=== PATIENT | male | born 1955 | race African-American/Black ===

== ENCOUNTER 2020-10-06 23:53 | Inpatient (IN) | payer SELFPAY ==
[2020-10-07 00:55] LABS: #Monocytes 0.7 10x3/uL (0.0-1.1); #Neutrophils 4.1 10x3/uL (1.5-8.4); %Basophils 0.3 % (0.0-2.0); %Eosinophils 0.2 % (0.0-6.0); %Lymphocytes 16.9 % (18.0-47.0); %Monocytes 11.6 % (0.0-10.0); %Neutrophils 70.3 % (40.0-75.0); Hemoglobin 11.5 g/dL (13.5-17.5); Mean Corpuscular HGB CONC 35.4 g/dL (32.0-36.0); Mean Corpuscular Hemoglobin 36.7 pg (27.0-33.0); Mean Corpuscular Volume 103.8 fl (81.2-95.1); Mean Platelet Volume 10.8 fl (7.4-10.4); Platelet Count 179 10x3/uL (150-450); RBC Distribution Width 12.5 % (11.5-14.5); Red Blood Cell (RBC) Count 3.13 10x6/uL (4.32-5.72); White Blood Cell (WBC) Count 5.9 10x3/uL (3.5-10.5)
[2020-10-07 01:08] LABS: Acetaminophen Less than 6.0 mcg/mL (10.0-30.0); Alcohol Less than 10 mg/dL (Less than 10); Salicylate Less than 8.0 mg/dL (15.0-30.0)
[2020-10-07 01:10] LABS: Albumin 3.9 g/dL (3.4-4.8); Anion Gap 20 mmol/L (10-20); BUN (Urea Nitrogen) 22 mg/dL (8.4-25.7); Calc. Creatinine Clearance 0 mL/min (70-130); Calcium 9.9 mg/dL (7.8-10.44); Carbon Dioxide 24 mmol/L (23-31); Chloride 100 mmol/L (98-107); Glucose 97 mg/dL (80-115); Potassium 3.3 mmol/L (3.5-5.1); Protein, Total 7.3 g/dL (5.8-8.1); Sodium 141 mmol/L (136-145)
[2020-10-07 01:11] LABS: ALT (SGPT) 54 U/L (8-55); AST (SGOT) 196 U/L (5-34); Alkaline Phosphatase 59 U/L (40-110); Globulin 3.4 g/dL (2.4-3.5)
[2020-10-07 01:14] LABS: Amphetamine Not Detected (NotDetected); Barbiturates Screen Not Detected (NotDetected); Benzodiazepine Screen Not Detected (NotDetected); Cocaine Metabolite Screen Not Detected (NotDetected); Methadone Not Detected (NotDetected); Methamphetamine Not Detected (NotDetected); Opiate Screen Not Detected (NotDetected); Oxycodone Screen Not Detected (NotDetected); Phencyclidine (PCP) Not Detected (NotDetected); THC/Cannabinoid Screen Not Detected (NotDetected); Tricyclic Screen Not Detected (NotDetected)
[2020-10-07 01:19] LABS: CK (CPK) 6736 U/L (30-200)
[2020-10-07 01:53] LABS: Bilirubin 3+ (Negative); Blood, Urine 150 (Negative); Clarity Cloudy (Clear); Glucose, Urine (Dipstick) Normal (Negative); Ketone, Urine 50 mg/dL (Negative); Leukocyte 100 (Negative); Nitrite Positive (Negative); Protein, Urine (Dipstick) 100 mg/dl (Neg-Trace); Specific Gravity, Urine 1.015 (1.002-1.036)
[2020-10-07 01:59] LABS: Bacteria/HPF 1+ HPF (None Seen); Squamous Epithelial 0-3 HPF (0-3); WBC/HPF 21-50 HPF (0-3)
[2020-10-07 02:00] LABS: Mucous/LPF 1+ LPF (<2+); Transitional Epithelial 0-3 HPF (None Seen)
[2020-10-07] MEDS ORDERED: cefTRIAXone\\ROCEPHIN 2 GM VIAL ONE (02:09)
[2020-10-07 02:27] LABS: CKMB 38.4 ng/mL (0-6.6)
[2020-10-07] MEDS ORDERED: Potassium Chloride 20 MEQ TAB PO SCH (04:30)
[2020-10-07] MEDS ORDERED: Thiamine HCl 200 MG/2 ML VIAL SLOW IVP SCH (04:30)
[2020-10-07] MEDS ORDERED: NS 0.9% w/ 40 MEQ KCL 1,000 ML IV ONE (04:50)
[2020-10-07] MEDS: NS 0.9% w/ 40 MEQ KCL 1,000 ML IV SCH ×2 (04:56→16:48)
[2020-10-07] MEDS: Nicotine 21 MG PATCH TD SCH (04:57)
[2020-10-07 05:11] LABS: Troponin I 0.038 ng/mL (< 0.028)
[2020-10-07] MEDS ORDERED: Magnesium 2 GM/50 ML 2 GM in Premix Bag 1 BAG IVPB SCH (08:00)
[2020-10-07] MEDS: Multivitamin W/ Minerals 1 TAB PO SCH (08:13)
[2020-10-07] MEDS: Folic Acid 1 MG TAB PO SCH (08:13)
[2020-10-07] MEDS: Enoxaparin Sodium 40 MG/0.4 ML SYRINGE SC SCH (08:13)
[2020-10-07] MEDS ORDERED: Thiamine 100 MG TAB PO SCH (09:00)
[2020-10-07 11:40] LABS: Troponin I 0.041 ng/mL (< 0.028)
[2020-10-07 14:25] LABS: SARS-CoV-2 PCR by NAA Not Detected (NotDetected)
[2020-10-08] MEDS: cefTRIAXone\\ROCEPHIN 1 GM in Sodium Chloride 0.9% 100 ML IVPB SCH (02:23)
[2020-10-08] MEDS ORDERED: Acetaminophen 325 MG TAB PO SCH (04:15)
[2020-10-08] MEDS: Nicotine 21 MG PATCH TD SCH (04:24)
[2020-10-08] MEDS: NS 0.9% w/ 40 MEQ KCL 1,000 ML IV SCH ×2 (04:24→08:56)
[2020-10-08 05:23] LABS: #Monocytes 0.6 10x3/uL (0.0-1.1); #Neutrophils 2.9 10x3/uL (1.5-8.4); %Basophils 0.4 % (0.0-2.0); %Eosinophils 0.4 % (0.0-6.0); %Lymphocytes 26.1 % (18.0-47.0); %Monocytes 12.3 % (0.0-10.0); %Neutrophils 59.4 % (40.0-75.0); Hemoglobin 10.1 g/dL (13.5-17.5); Mean Corpuscular HGB CONC 34.4 g/dL (32.0-36.0); Mean Corpuscular Hemoglobin 35.4 pg (27.0-33.0); Mean Corpuscular Volume 103.2 fl (81.2-95.1); Mean Platelet Volume 10.5 fl (7.4-10.4); Platelet Count 168 10x3/uL (150-450); RBC Distribution Width 13.1 % (11.5-14.5); Red Blood Cell (RBC) Count 2.85 10x6/uL (4.32-5.72); White Blood Cell (WBC) Count 4.9 10x3/uL (3.5-10.5)
[2020-10-08 05:26] LABS: Anion Gap 15 mmol/L (10-20); BUN (Urea Nitrogen) 14 mg/dL (8.4-25.7); Calc. Creatinine Clearance 93 mL/min (70-130); Calcium 8.8 mg/dL (7.8-10.44); Carbon Dioxide 24 mmol/L (23-31); Chloride 107 mmol/L (98-107); Glucose 110 mg/dL (80-115); Potassium 3.5 mmol/L (3.5-5.1); Sodium 142 mmol/L (136-145)
[2020-10-08] MEDS: Multivitamin W/ Minerals 1 TAB PO SCH (08:57)
[2020-10-08] MEDS: Aspirin 81 mg Enteric Coated Tablet PO SCH (08:57)
[2020-10-08] MEDS: Enoxaparin Sodium 40 MG/0.4 ML SYRINGE SC SCH (08:57)
[2020-10-08] MEDS: Folic Acid 1 MG TAB PO SCH (08:57)
[2020-10-08] MEDS: Magnesium Oxide 400 MG TAB PO SCH (08:59)
[2020-10-08 10:50] LABS: ALT (SGPT) 41 U/L (8-55); AST (SGOT) 108 U/L (5-34); Albumin 3.3 g/dL (3.4-4.8); Alkaline Phosphatase 52 U/L (40-110); Bilirubin, Direct 0.3 mg/dL (0.1-0.3); Bilirubin, Total 0.5 mg/dL (0.2-1.2); Protein, Total 6.3 g/dL (5.8-8.1)
[2020-10-08 12:28] LABS: #Monocytes 0.8 10x3/uL (0.0-1.1); #Neutrophils 3.6 10x3/uL (1.5-8.4); %Basophils 0.4 % (0.0-2.0); %Eosinophils 0.4 % (0.0-6.0); %Lymphocytes 20.9 % (18.0-47.0); %Monocytes 13.3 % (0.0-10.0); %Neutrophils 63.4 % (40.0-75.0); Hemoglobin 10.9 g/dL (13.5-17.5); Mean Corpuscular HGB CONC 34.8 g/dL (32.0-36.0); Mean Corpuscular Hemoglobin 36.5 pg (27.0-33.0); Mean Corpuscular Volume 104.7 fl (81.2-95.1); Mean Platelet Volume 10.8 fl (7.4-10.4); Platelet Count 181 10x3/uL (150-450); Red Blood Cell (RBC) Count 2.99 10x6/uL (4.32-5.72); White Blood Cell (WBC) Count 5.7 10x3/uL (3.5-10.5)
[2020-10-08] MEDS ORDERED: Metoprolol Tartrate 5 MG/5 ML VIAL IVP SCH (12:30)
[2020-10-08 12:39] LABS: Anion Gap 14 mmol/L (10-20); BUN (Urea Nitrogen) 14 mg/dL (8.4-25.7); Calc. Creatinine Clearance 108 mL/min (70-130); Calcium 8.3 mg/dL (7.8-10.44); Carbon Dioxide 20 mmol/L (23-31); Chloride 108 mmol/L (98-107); Glucose 127 mg/dL (80-115); Potassium 3.3 mmol/L (3.5-5.1); Sodium 139 mmol/L (136-145)
[2020-10-08 12:42] LABS: Troponin I 0.031 ng/mL (< 0.028)
[2020-10-09] MEDS: NS 0.9% w/ 40 MEQ KCL 1,000 ML IV SCH ×3 (00:17→05:58)
[2020-10-09] MEDS: cefTRIAXone\\ROCEPHIN 1 GM in Sodium Chloride 0.9% 100 ML IVPB SCH (02:25)
[2020-10-09] MEDS: Nicotine 21 MG PATCH TD SCH (05:15)
[2020-10-09] MEDS ORDERED: Diazepam 5 MG TAB PO PRN (07:43)
[2020-10-09] MEDS ORDERED: Diazepam 5 MG TAB PO SCH (07:45)
[2020-10-09 08:32] LABS: #Monocytes 0.7 10x3/uL (0.0-1.1); #Neutrophils 4.1 10x3/uL (1.5-8.4); %Basophils 0.5 % (0.0-2.0); %Eosinophils 0.5 % (0.0-6.0); %Lymphocytes 18.6 % (18.0-47.0); %Monocytes 10.9 % (0.0-10.0); %Neutrophils 68.2 % (40.0-75.0); Hemoglobin 10.9 g/dL (13.5-17.5); Mean Corpuscular HGB CONC 34.2 g/dL (32.0-36.0); Mean Corpuscular Hemoglobin 36.3 pg (27.0-33.0); Mean Corpuscular Volume 106.3 fl (81.2-95.1); Mean Platelet Volume 10.6 fl (7.4-10.4); Platelet Count 181 10x3/uL (150-450); RBC Distribution Width 13.1 % (11.5-14.5); White Blood Cell (WBC) Count 6.1 10x3/uL (3.5-10.5)
[2020-10-09] MEDS ORDERED: ALPRAZolam 1 MG TAB PO SCH (08:45)
[2020-10-09 08:46] LABS: Anion Gap 16 mmol/L (10-20); BUN (Urea Nitrogen) 10 mg/dL (8.4-25.7); Calc. Creatinine Clearance 110 mL/min (70-130); Calcium 8.9 mg/dL (7.8-10.44); Carbon Dioxide 19 mmol/L (23-31); Chloride 106 mmol/L (98-107); Glucose 113 mg/dL (80-115); Potassium 3.6 mmol/L (3.5-5.1); Sodium 137 mmol/L (136-145)
[2020-10-09 08:49] LABS: Troponin I 0.035 ng/mL (< 0.028)
[2020-10-09] MEDS ORDERED: Magnesium Oxide 400 MG TAB ONE (09:13)
[2020-10-09] MEDS: Aspirin 81 mg Enteric Coated Tablet PO SCH (09:25)
[2020-10-09] MEDS: Folic Acid 1 MG TAB PO SCH (09:26)
[2020-10-09] MEDS: Enoxaparin Sodium 40 MG/0.4 ML SYRINGE SC SCH (09:26)
[2020-10-09] MEDS: Multivitamin W/ Minerals 1 TAB PO SCH (09:26)
[2020-10-09] MEDS: Magnesium Oxide 400 MG TAB PO SCH (09:26)
[2020-10-09] MEDS: Lorazepam 2 MG/ML VIAL SLOW IVP SCH ×4 (09:26→23:13)
[2020-10-09] MEDS ORDERED: Magnesium 2 GM/50 ML 2 GM in Premix Bag 1 BAG IVPB SCH (10:45)
[2020-10-09] MEDS ORDERED: chlordiazePOXIDE HCl 25 MG CAP PO SCH ×2 (12:00→23:00)
[2020-10-09] MEDS: ALPRAZolam 1 MG TAB PO SCH (23:13)
[2020-10-10] MEDS: cefTRIAXone\\ROCEPHIN 1 GM in Sodium Chloride 0.9% 100 ML IVPB SCH (02:30)
[2020-10-10] MEDS: Lorazepam 2 MG/ML VIAL SLOW IVP SCH ×4 (03:14→14:48)
[2020-10-10] MEDS: Nicotine 21 MG PATCH TD SCH (03:39)
[2020-10-10] MEDS ORDERED: Diazepam 5 MG TAB PO PRN (04:00)
[2020-10-10 06:53] LABS: Hemoglobin 10.5 g/dL (13.5-17.5); Mean Corpuscular HGB CONC 35.4 g/dL (32.0-36.0); Mean Corpuscular Hemoglobin 36.6 pg (27.0-33.0); Mean Corpuscular Volume 103.5 fl (81.2-95.1); Mean Platelet Volume 10.7 fl (7.4-10.4); Platelet Count 198 10x3/uL (150-450); RBC Distribution Width 12.9 % (11.5-14.5); Red Blood Cell (RBC) Count 2.87 10x6/uL (4.32-5.72); White Blood Cell (WBC) Count 5.1 10x3/uL (3.5-10.5)
[2020-10-10 06:54] LABS: MDiff Complete? YES
[2020-10-10 07:01] LABS: Anion Gap 13 mmol/L (10-20); BUN (Urea Nitrogen) 6 mg/dL (8.4-25.7); Calc. Creatinine Clearance 124 mL/min (70-130); Carbon Dioxide 24 mmol/L (23-31); Chloride 103 mmol/L (98-107); Glucose 104 mg/dL (80-115); Magnesium 1.5 mg/dL (1.6-2.6); Potassium 3.1 mmol/L (3.5-5.1); Sodium 137 mmol/L (136-145)
[2020-10-10 07:10] LABS: Eosinophils 1 % (0-10); Lymphocytes 30 % (21-51); Monocytes 16 % (0-10); Neutrophil 52 % (42-75); Reactive Lymphocytes 1 % (0-10)
[2020-10-10] MEDS ORDERED: Potassium Chloride 20 MEQ TAB PO SCH (08:30)
[2020-10-10] MEDS: Folic Acid 1 MG TAB PO SCH (08:44)
[2020-10-10] MEDS: Magnesium Oxide 400 MG TAB PO SCH (08:44)
[2020-10-10] MEDS: Enoxaparin Sodium 40 MG/0.4 ML SYRINGE SC SCH (08:44)
[2020-10-10] MEDS: ALPRAZolam 1 MG TAB PO SCH (08:44)
[2020-10-10] MEDS: Thiamine 100 MG TAB PO SCH (08:44)
[2020-10-10] MEDS: Multivitamin W/ Minerals 1 TAB PO SCH (08:44)
[2020-10-10] MEDS: Aspirin 81 mg Enteric Coated Tablet PO SCH (08:44)
[2020-10-10] MEDS ORDERED: Magnesium Sulfate 3 GM in Sodium Chloride 0.9% 100 ML IVPB SCH (09:00)
[2020-10-10] MEDS ORDERED: ALPRAZolam 1 MG TAB PO PRN (21:00)
[2020-10-10] MEDS ORDERED: Lorazepam 2 MG/ML VIAL SLOW IVP SCH (21:00)
[2020-10-11] MEDS: cefTRIAXone\\ROCEPHIN 1 GM in Sodium Chloride 0.9% 100 ML IVPB SCH (03:17)
[2020-10-11] MEDS: Nicotine 21 MG PATCH TD SCH (04:08)
[2020-10-11 06:43] LABS: Hemoglobin 10.6 g/dL (13.5-17.5); Mean Corpuscular HGB CONC 35.1 g/dL (32.0-36.0); Mean Corpuscular Hemoglobin 35.9 pg (27.0-33.0); Mean Corpuscular Volume 102.4 fl (81.2-95.1); Mean Platelet Volume 10.4 fl (7.4-10.4); Platelet Count 215 10x3/uL (150-450); Red Blood Cell (RBC) Count 2.95 10x6/uL (4.32-5.72); White Blood Cell (WBC) Count 4.2 10x3/uL (3.5-10.5)
[2020-10-11 06:46] LABS: MDiff Complete? YES
[2020-10-11 07:01] LABS: ALT (SGPT) 44 U/L (8-55); AST (SGOT) 66 U/L (5-34); Albumin 2.9 g/dL (3.4-4.8); Alkaline Phosphatase 52 U/L (40-110); Anion Gap 11 mmol/L (10-20); BUN (Urea Nitrogen) 6 mg/dL (8.4-25.7); Bilirubin, Total 0.5 mg/dL (0.2-1.2); Calc. Creatinine Clearance 118 mL/min (70-130); Calcium 8.7 mg/dL (7.8-10.44); Carbon Dioxide 27 mmol/L (23-31); Chloride 102 mmol/L (98-107); Globulin 2.9 g/dL (2.4-3.5); Glucose 122 mg/dL (80-115); Magnesium 1.5 mg/dL (1.6-2.6); Phosphorus 4.4 mg/dL (2.3-4.7); Potassium 3.6 mmol/L (3.5-5.1); Protein, Total 5.8 g/dL (5.8-8.1); Sodium 136 mmol/L (136-145)
[2020-10-11 07:11] LABS: Eosinophils 1 % (0-10); Lymphocytes 24 % (21-51); Monocytes 18 % (0-10); Neutrophil 53 % (42-75); Reactive Lymphocytes 4 % (0-10)
[2020-10-11] MEDS ORDERED: Lorazepam 2 MG/ML VIAL SLOW IVP PRN (08:18)
[2020-10-11] MEDS ORDERED: Magnesium Sulfate 4 GM in Sodium Chloride 0.9% 250 ML 250 ML IVPB SCH (08:30)
[2020-10-11] MEDS ORDERED: Potassium Chloride 20 MEQ TAB PO SCH (08:30)
[2020-10-11] MEDS: Magnesium Oxide 400 MG TAB PO SCH ×2 (09:06→09:07)
[2020-10-11] MEDS: Multivitamin W/ Minerals 1 TAB PO SCH (09:06)
[2020-10-11] MEDS: Folic Acid 1 MG TAB PO SCH (09:07)
[2020-10-11] MEDS: Aspirin 81 mg Enteric Coated Tablet PO SCH (09:07)
[2020-10-11] MEDS: Thiamine 100 MG TAB PO SCH (09:07)
[2020-10-11] MEDS: Enoxaparin Sodium 40 MG/0.4 ML SYRINGE SC SCH (09:07)
[2020-10-11] MEDS: Carvedilol 3.125 MG TAB PO SCH (18:49)
[2020-10-11] MEDS: Ubidecarenone 50 MG CAP PO SCH (21:18)
[2020-10-12] MEDS: cefTRIAXone\\ROCEPHIN 1 GM in Sodium Chloride 0.9% 100 ML IVPB SCH (02:38)
[2020-10-12] MEDS: Nicotine 21 MG PATCH TD SCH (02:39)
[2020-10-12 06:14] LABS: Phosphorus 3.7 mg/dL (2.3-4.7)
[2020-10-12 06:15] LABS: Hemoglobin 10.8 g/dL (13.5-17.5); MDiff Complete? YES; Mean Corpuscular HGB CONC 35.9 g/dL (32.0-36.0); Mean Corpuscular Hemoglobin 36.6 pg (27.0-33.0); Mean Platelet Volume 10.6 fl (7.4-10.4); Platelet Count 251 10x3/uL (150-450); RBC Distribution Width 12.7 % (11.5-14.5); Red Blood Cell (RBC) Count 2.95 10x6/uL (4.32-5.72); White Blood Cell (WBC) Count 5.3 10x3/uL (3.5-10.5)
[2020-10-12 06:19] LABS: ALT (SGPT) 50 U/L (8-55); AST (SGOT) 63 U/L (5-34); Albumin 2.9 g/dL (3.4-4.8); Alkaline Phosphatase 56 U/L (40-110); Anion Gap 11 mmol/L (10-20); BUN (Urea Nitrogen) 8 mg/dL (8.4-25.7); Bilirubin, Total 0.4 mg/dL (0.2-1.2); Calc. Creatinine Clearance 124 mL/min (70-130); Calcium 8.9 mg/dL (7.8-10.44); Carbon Dioxide 26 mmol/L (23-31); Chloride 99 mmol/L (98-107); Glucose 112 mg/dL (80-115); Magnesium 1.6 mg/dL (1.6-2.6); Potassium 3.8 mmol/L (3.5-5.1); Protein, Total 5.9 g/dL (5.8-8.1); Sodium 132 mmol/L (136-145)
[2020-10-12 06:59] LABS: Lymphocytes 26 % (21-51); Monocytes 22 % (0-10); Neutrophil 51 % (42-75); Reactive Lymphocytes 1 % (0-10)
[2020-10-12 07:00] LABS: Large Platelets SLIGHT
[2020-10-12] MEDS ORDERED: Magnesium Sulfate 3 GM in Sodium Chloride 0.9% 100 ML IVPB SCH (08:45)
[2020-10-12] MEDS: Aspirin 81 mg Enteric Coated Tablet PO SCH (09:43)
[2020-10-12] MEDS: [UNRECOGNIZED DRUG - CODE] PO SCH (09:44)
[2020-10-12] MEDS: Magnesium Oxide 400 MG TAB PO SCH (09:44)
[2020-10-12] MEDS: Thiamine 100 MG TAB PO SCH (09:44)
[2020-10-12] MEDS: Carvedilol 3.125 MG TAB PO SCH ×2 (09:44→17:12)
[2020-10-12] MEDS: Folic Acid 1 MG TAB PO SCH (09:44)
[2020-10-12] MEDS: Multivitamin W/ Minerals 1 TAB PO SCH (09:44)
[2020-10-12] MEDS: Enoxaparin Sodium 40 MG/0.4 ML SYRINGE SC SCH (09:45)
[2020-10-12] MEDS ORDERED: Potassium Bicarbonate/Cit Ac 20 MEQ TAB PO SCH (11:15)
[2020-10-12 19:47] VITALS: BMI 22.8
[2020-10-12] MEDS: Ubidecarenone 50 MG CAP PO SCH (20:08)
[2020-10-13] MEDS ORDERED: diphenhydrAMINE 50 MG CAP PO SCH (03:00)
[2020-10-13] MEDS: Nicotine 21 MG PATCH TD SCH (03:39)
[2020-10-13 07:00] LABS: #Eosinphils 0.1 10x3/uL (0.0-0.5); #Monocytes 1.1 10x3/uL (0.0-1.1); #Neutrophils 2.6 10x3/uL (1.5-8.4); %Basophils 0.6 % (0.0-2.0); %Eosinophils 1.9 % (0.0-6.0); %Lymphocytes 25.6 % (18.0-47.0); %Monocytes 21.4 % (0.0-10.0); %Neutrophils 50.1 % (40.0-75.0); Hemoglobin 10.5 g/dL (13.5-17.5); Mean Corpuscular HGB CONC 35.2 g/dL (32.0-36.0); Mean Corpuscular Volume 102.1 fl (81.2-95.1); Mean Platelet Volume 10.4 fl (7.4-10.4); Platelet Count 281 10x3/uL (150-450); RBC Distribution Width 12.3 % (11.5-14.5); Red Blood Cell (RBC) Count 2.92 10x6/uL (4.32-5.72); White Blood Cell (WBC) Count 5.2 10x3/uL (3.5-10.5)
[2020-10-13 07:10] LABS: Anion Gap 12 mmol/L (10-20)
[2020-10-13 07:22] LABS: ALT (SGPT) 51 U/L (8-55); AST (SGOT) 56 U/L (5-34); Albumin 3.1 g/dL (3.4-4.8); Alkaline Phosphatase 52 U/L (40-110); BUN (Urea Nitrogen) 7 mg/dL (8.4-25.7); Bilirubin, Total 0.5 mg/dL (0.2-1.2); Calc. Creatinine Clearance 127 mL/min (70-130); Calcium 9.3 mg/dL (7.8-10.44); Carbon Dioxide 26 mmol/L (23-31); Chloride 97 mmol/L (98-107); Glucose 100 mg/dL (80-115); Magnesium 1.6 mg/dL (1.6-2.6); Phosphorus 4.5 mg/dL (2.3-4.7); Potassium 3.8 mmol/L (3.5-5.1); Protein, Total 6.1 g/dL (5.8-8.1); Sodium 131 mmol/L (136-145)
[2020-10-13] MEDS: Aspirin 81 mg Enteric Coated Tablet PO SCH (09:02)
[2020-10-13] MEDS: Multivitamin W/ Minerals 1 TAB PO SCH (09:02)
[2020-10-13] MEDS: Enoxaparin Sodium 40 MG/0.4 ML SYRINGE SC SCH (09:02)
[2020-10-13] MEDS: Folic Acid 1 MG TAB PO SCH (09:02)
[2020-10-13] MEDS: Magnesium Oxide 400 MG TAB PO SCH (09:02)
[2020-10-13] MEDS: [UNRECOGNIZED DRUG - CODE] PO SCH (09:02)
[2020-10-13] MEDS: Thiamine 100 MG TAB PO SCH (09:02)
[2020-10-13] MEDS: Carvedilol 3.125 MG TAB PO SCH ×2 (09:03→18:38)
[2020-10-13] MEDS ORDERED: Lorazepam 1 MG TAB PO PRN (16:17)
[2020-10-13] MEDS: Ubidecarenone 50 MG CAP PO SCH (20:13)
[2020-10-14] MEDS: Nicotine 21 MG PATCH TD SCH ×2 (04:55→05:00)
[2020-10-14 05:02] VITALS: TEMP 98.4
[2020-10-14 05:02] LABS: #Eosinphils 0.1 10x3/uL (0.0-0.5); #Monocytes 0.9 10x3/uL (0.0-1.1); #Neutrophils 3.1 10x3/uL (1.5-8.4); %Basophils 0.5 % (0.0-2.0); %Eosinophils 1.6 % (0.0-6.0); %Lymphocytes 25.4 % (18.0-47.0); Mean Corpuscular HGB CONC 35.5 g/dL (32.0-36.0); Mean Corpuscular Hemoglobin 36.5 pg (27.0-33.0); Mean Platelet Volume 10.9 fl (7.4-10.4); Platelet Count 276 10x3/uL (150-450); RBC Distribution Width 12.4 % (11.5-14.5); Red Blood Cell (RBC) Count 3.01 10x6/uL (4.32-5.72); White Blood Cell (WBC) Count 5.6 10x3/uL (3.5-10.5)
[2020-10-14 05:10] LABS: Anion Gap 16 mmol/L (10-20); BUN (Urea Nitrogen) 8 mg/dL (8.4-25.7); Calc. Creatinine Clearance 120 mL/min (70-130); Calcium 9.4 mg/dL (7.8-10.44); Carbon Dioxide 22 mmol/L (23-31); Chloride 95 mmol/L (98-107); Glucose 94 mg/dL (80-115); Magnesium 1.4 mg/dL (1.6-2.6); Potassium 3.6 mmol/L (3.5-5.1); Sodium 129 mmol/L (136-145)
[2020-10-14] MEDS ORDERED: Magnesium Sulfate 4 GM in Sodium Chloride 0.9% 250 ML 250 ML IVPB SCH (08:30)
[2020-10-14] MEDS: Aspirin 81 mg Enteric Coated Tablet PO SCH (10:00)
[2020-10-14] MEDS: Thiamine 100 MG TAB PO SCH (10:00)
[2020-10-14] MEDS: Carvedilol 3.125 MG TAB PO SCH (10:00)
[2020-10-14] MEDS: Multivitamin W/ Minerals 1 TAB PO SCH (10:00)
[2020-10-14] MEDS: [UNRECOGNIZED DRUG - CODE] PO SCH (10:00)
[2020-10-14] MEDS: Folic Acid 1 MG TAB PO SCH (10:00)
[2020-10-14] MEDS: Enoxaparin Sodium 40 MG/0.4 ML SYRINGE SC SCH (10:00)
[2020-10-14] MEDS: Magnesium Oxide 400 MG TAB PO SCH (10:00)
[2020-10-14 11:58] VITALS: BP 120/79
== END 2020-10-14 15:50 | disposition home or self-care (01) | DRG 557 ==
LOC: CSHERS 23:53 → OBSVTOIN 10-07 03:36 → CSHTELE 10-07 03:36 → OBSVTOIN 10-07 04:06 → INTOOBSV 10-07 04:06
PROVIDERS: ADMIT Family Medicine; ATTEND Internal Medicine
DX: M62.82 Rhabdomyolysis (principal); G93.41 Metabolic encephalopathy; N39.0 Urinary tract infection, site not specified; G72.1 Alcoholic myopathy; F10.139 Alcohol abuse with withdrawal, unspecified; I50.22 Chronic systolic (congestive) heart failure; E83.42 Hypomagnesemia; E87.6 Hypokalemia; D53.9 Nutritional anemia, unspecified; F17.210 Nicotine dependence, cigarettes, uncomplicated; Z20.822 Contact with and (suspected) exposure to COVID-19
CPT/HCPCS: 36415; 36416; 51701; 70450; 71045; 80048; 80053; 80076; 80306; 80307; 81003; 81015; 82140; 82550; 82553; 82607; 82746; 83605; 83735; 83880; 84100; 84443; 84484; 85025; 87040; 87077; 87086; 87635; 93005; 93010; 93306; 94760; 96365; J0696; J1650; J2060; J3411; J3475; J3480; J3490; J7050; U0003; U0005

== ENCOUNTER 2021-03-20 05:05 | Inpatient (IN) | payer OTHER, SELFPAY ==
[2021-03-20 05:43] LABS: Hemoglobin 8.5 g/dL (13.5-17.5); Mean Corpuscular HGB CONC 33.5 g/dL (32.0-36.0); Mean Corpuscular Hemoglobin 32.1 pg (27.0-33.0); Mean Corpuscular Volume 95.8 fl (81.2-95.1); Mean Platelet Volume 9.1 fl (7.4-10.4); Platelet Count 439 10x3/uL (150-450); RBC Distribution Width 14.4 % (11.5-14.5); Red Blood Cell (RBC) Count 2.65 10x6/uL (4.32-5.72); White Blood Cell (WBC) Count 6.1 10x3/uL (3.5-10.5)
[2021-03-20 05:45] LABS: Acetaminophen Less than 6.0 mcg/mL (10.0-30.0); Alcohol Less than 10 mg/dL (Less than 10); Salicylate Less than 8.0 mg/dL (15.0-30.0)
[2021-03-20 05:47] LABS: ALT (SGPT) 8 U/L (8-55); AST (SGOT) 14 U/L (5-34); Albumin 3.6 g/dL (3.4-4.8); Alkaline Phosphatase 54 U/L (40-110); Anion Gap 13 mmol/L (10-20); BUN (Urea Nitrogen) 10 mg/dL (8.4-25.7); Bilirubin, Total 0.6 mg/dL (0.2-1.2); CK (CPK) 104 U/L (30-200); Calc. Creatinine Clearance 0 mL/min (70-130); Calcium 9.6 mg/dL (7.8-10.44); Carbon Dioxide 24 mmol/L (23-31); Chloride 103 mmol/L (98-107); Globulin 3.7 g/dL (2.4-3.5); Glucose 106 mg/dL (80-115); Protein, Total 7.3 g/dL (5.8-8.1); Sodium 136 mmol/L (136-145)
[2021-03-20 06:56] LABS: Band 3 % (5-11); Lymphocytes 22 % (21-51); Reactive Lymphocytes 2 % (0-10)
[2021-03-20 07:00] LABS: Neutrophil 62 % (42-75)
[2021-03-20 07:01] LABS: Monocytes 10 % (0-10)
[2021-03-20 07:02] LABS: Platelet Clumps SLIGHT; Platelet Morphology Comment Appears Increased
[2021-03-20 07:03] LABS: MDiff Complete? YES
[2021-03-20 07:04] LABS: RBC Morphology Normal
[2021-03-20] MEDS ORDERED: Ondansetron ODT 4 MG TAB PO PRN (08:56)
[2021-03-20] MEDS ORDERED: Sodium Chloride 0.9% 1,000 ML IV SCH (09:00)
[2021-03-20] MEDS ORDERED: Cefepime 2 GM VIAL ONE (09:00)
[2021-03-20] MEDS: Enoxaparin Sodium 30 MG/0.3 ML SYRINGE SC SCH (09:00)
[2021-03-20] MEDS: Famotidine 20 MG TAB PO SCH ×2 (09:00→20:12)
[2021-03-20] MEDS ORDERED: Vancomycin HCl 500 MG VIAL ONE (09:01)
[2021-03-20 09:59] LABS: SARS-CoV-2 NAA Rapid Test Not Detected (NotDetected)
[2021-03-20 13:32] LABS: Magnesium 1.5 mg/dL (1.6-2.6)
[2021-03-20 13:39] LABS: Troponin I Less than 0.010 ng/mL (< 0.028)
[2021-03-20 13:55] LABS: Thyroid Stimulating Hormone 1.2682 uIU/mL (0.35-4.94)
[2021-03-20] MEDS ORDERED: Magnesium 2 GM/50 ML 2 GM in Premix Bag 1 BAG IVPB SCH (14:00)
[2021-03-20] MEDS: Carvedilol 3.125 MG TAB PO SCH (17:36)
[2021-03-20] MEDS: Multivit, Therapeutic 1 TAB PO SCH ×2 (17:44→17:45)
[2021-03-20] MEDS ORDERED: FLU VACC QS2021-22(6MOS UP)/PF 60 MCG/0.5 ML SYRINGE IM ONE (21:30)
[2021-03-21 04:48] LABS: Anion Gap 13 mmol/L (10-20); BUN (Urea Nitrogen) 8 mg/dL (8.4-25.7); Calc. Creatinine Clearance 101 mL/min (70-130); Calcium 8.8 mg/dL (7.8-10.44); Carbon Dioxide 21 mmol/L (23-31); Chloride 106 mmol/L (98-107); Glucose 116 mg/dL (80-115); Potassium 3.8 mmol/L (3.5-5.1); Sodium 136 mmol/L (136-145)
[2021-03-21 04:55] LABS: Hemoglobin 7.9 g/dL (13.5-17.5); Mean Corpuscular HGB CONC 33.8 g/dL (32.0-36.0); Mean Corpuscular Volume 94.7 fl (81.2-95.1); Mean Platelet Volume 9.3 fl (7.4-10.4); Platelet Count 363 10x3/uL (150-450); RBC Distribution Width 14.6 % (11.5-14.5); Red Blood Cell (RBC) Count 2.47 10x6/uL (4.32-5.72); White Blood Cell (WBC) Count 6.2 10x3/uL (3.5-10.5)
[2021-03-21 06:59] LABS: Band 4 % (5-11); Eosinophils 2 % (0-10); Lymphocytes 14 % (21-51); Monocytes 11 % (0-10); Neutrophil 56 % (42-75); Reactive Lymphocytes 12 % (0-10)
[2021-03-21 07:01] LABS: Anisocytosis SLIGHT = 6-15 cells (100X) (0-5/hpf); Hypochromia SLIGHT = 6-15 cells (100X) (0-5/hpf); Large Platelets SLIGHT; Platelet Morphology Comment Appears Adequate
[2021-03-21 07:04] LABS: MDiff Complete? YES
[2021-03-21 07:45] LABS: Bilirubin Neg (Negative); Blood, Urine Negative (Negative); Clarity Clear (Clear); Glucose, Urine (Dipstick) Normal (Negative); Ketone, Urine Negative (Negative); Leukocyte Negative (Negative); Nitrite Negative (Negative); Protein, Urine (Dipstick) Negative (Neg-Trace); Specific Gravity, Urine 1.005 (1.002-1.036); Urobilinogen Normal mg/dL (Less than 2)
[2021-03-21 07:53] LABS: Amphetamine Not Detected (NotDetected); Barbiturates Screen Not Detected (NotDetected); Benzodiazepine Screen Not Detected (NotDetected); Cocaine Metabolite Screen Not Detected (NotDetected); Methadone Not Detected (NotDetected); Methamphetamine Not Detected (NotDetected); Opiate Screen Not Detected (NotDetected); Oxycodone Screen Not Detected (NotDetected); Phencyclidine (PCP) Not Detected (NotDetected); THC/Cannabinoid Screen Not Detected (NotDetected); Tricyclic Screen Not Detected (NotDetected)
[2021-03-21 08:00] LABS: Bacteria/HPF None Seen HPF (None Seen); RBC/HPF None Seen HPF (0-3); Squamous Epithelial 0-3 HPF (0-3); WBC/HPF None Seen HPF (0-3)
[2021-03-21] MEDS: Famotidine 20 MG TAB PO SCH ×2 (08:53→19:45)
[2021-03-21] MEDS: Losartan 25 MG TAB PO SCH (08:53)
[2021-03-21] MEDS: Acetaminophen 325 MG TAB PO PRN (08:53)
[2021-03-21] MEDS: Cyanocobalamin (Vitamin B-12) 1,000 MCG TAB PO SCH (08:53)
[2021-03-21] MEDS: Carvedilol 3.125 MG TAB PO SCH ×2 (08:54→18:20)
[2021-03-21] MEDS: Multivit, Therapeutic 1 TAB PO SCH (08:54)
[2021-03-21] MEDS: Folic Acid 1 MG TAB PO SCH (08:54)
[2021-03-21] MEDS: Enoxaparin Sodium 30 MG/0.3 ML SYRINGE SC SCH (08:54)
[2021-03-21] MEDS: Aspirin 81 mg Enteric Coated Tablet PO SCH (08:54)
[2021-03-21] MEDS: Thiamine 100 MG TAB PO SCH (08:54)
[2021-03-22 06:14] LABS: Hemoglobin 8.2 g/dL (13.5-17.5); Mean Corpuscular HGB CONC 32.8 g/dL (32.0-36.0); Mean Corpuscular Hemoglobin 30.8 pg (27.0-33.0); Mean Platelet Volume 9.6 fl (7.4-10.4); Platelet Count 372 10x3/uL (150-450); RBC Distribution Width 14.6 % (11.5-14.5); Red Blood Cell (RBC) Count 2.66 10x6/uL (4.32-5.72)
[2021-03-22 06:15] LABS: Anion Gap 14 mmol/L (10-20); BUN (Urea Nitrogen) 7 mg/dL (8.4-25.7); Calc. Creatinine Clearance 101 mL/min (70-130); Calcium 8.8 mg/dL (7.8-10.44); Carbon Dioxide 22 mmol/L (23-31); Chloride 99 mmol/L (98-107); Glucose 121 mg/dL (80-115); Magnesium 1.3 mg/dL (1.6-2.6); Potassium 4.1 mmol/L (3.5-5.1); Sodium 131 mmol/L (136-145)
[2021-03-22 06:56] LABS: MDiff Complete? YES
[2021-03-22 06:59] LABS: Band 4 % (5-11); Eosinophils 7 % (0-10); Lymphocytes 35 % (21-51); Monocytes 10 % (0-10); Neutrophil 44 % (42-75)
[2021-03-22 07:00] LABS: Platelet Morphology Comment Appears Adequate
[2021-03-22 07:01] LABS: RBC Morphology Normal
[2021-03-22] MEDS ORDERED: Magnesium 2 GM/50 ML 2 GM in Premix Bag 1 BAG IVPB SCH (07:30)
[2021-03-22] MEDS: Enoxaparin Sodium 30 MG/0.3 ML SYRINGE SC SCH (09:46)
[2021-03-22] MEDS: Losartan 25 MG TAB PO SCH (09:47)
[2021-03-22] MEDS: Folic Acid 1 MG TAB PO SCH (09:47)
[2021-03-22] MEDS: Carvedilol 3.125 MG TAB PO SCH ×2 (09:47→18:00)
[2021-03-22] MEDS: Aspirin 81 mg Enteric Coated Tablet PO SCH (09:47)
[2021-03-22] MEDS: Cyanocobalamin (Vitamin B-12) 1,000 MCG TAB PO SCH (09:47)
[2021-03-22] MEDS: Multivit, Therapeutic 1 TAB PO SCH (09:47)
[2021-03-22] MEDS: Famotidine 20 MG TAB PO SCH ×2 (09:47→20:13)
[2021-03-22] MEDS: Thiamine 100 MG TAB PO SCH (09:47)
[2021-03-23 04:12] LABS: Anion Gap 17 mmol/L (10-20); BUN (Urea Nitrogen) 9 mg/dL (8.4-25.7); Calc. Creatinine Clearance 104 mL/min (70-130); Calcium 9.8 mg/dL (7.8-10.44); Carbon Dioxide 20 mmol/L (23-31); Chloride 94 mmol/L (98-107); Glucose 101 mg/dL (80-115); Magnesium 1.5 mg/dL (1.6-2.6); Potassium 4.5 mmol/L (3.5-5.1); Sodium 126 mmol/L (136-145)
[2021-03-23 04:13] LABS: #Eosinphils 0.3 10x3/uL (0.0-0.5); #Monocytes 0.7 10x3/uL (0.0-1.1); #Neutrophils 2.7 10x3/uL (1.5-8.4); %Basophils 0.8 % (0.0-2.0); %Eosinophils 5.3 % (0.0-6.0); %Lymphocytes 29.5 % (18.0-47.0); %Monocytes 13.5 % (0.0-10.0); %Neutrophils 50.3 % (40.0-75.0); Hemoglobin 9.5 g/dL (13.5-17.5); Mean Corpuscular HGB CONC 34.4 g/dL (32.0-36.0); Mean Corpuscular Hemoglobin 31.7 pg (27.0-33.0); Mean Platelet Volume 9.3 fl (7.4-10.4); Platelet Count 395 10x3/uL (150-450); RBC Distribution Width 13.5 % (11.5-14.5); White Blood Cell (WBC) Count 5.3 10x3/uL (3.5-10.5)
[2021-03-23] MEDS: Enoxaparin Sodium 30 MG/0.3 ML SYRINGE SC SCH (08:12)
[2021-03-23] MEDS: Thiamine 100 MG TAB PO SCH (08:13)
[2021-03-23] MEDS: Losartan 25 MG TAB PO SCH (08:13)
[2021-03-23] MEDS: Folic Acid 1 MG TAB PO SCH (08:13)
[2021-03-23] MEDS: Famotidine 20 MG TAB PO SCH ×2 (08:13→20:26)
[2021-03-23] MEDS: Aspirin 81 mg Enteric Coated Tablet PO SCH (08:13)
[2021-03-23] MEDS: Multivit, Therapeutic 1 TAB PO SCH (08:13)
[2021-03-23] MEDS: Carvedilol 3.125 MG TAB PO SCH ×2 (08:13→18:20)
[2021-03-23] MEDS: Cyanocobalamin (Vitamin B-12) 1,000 MCG TAB PO SCH (08:13)
[2021-03-23] MEDS ORDERED: Magnesium Sulfate 2 GM in Sodium Chloride 0.9% 100 ML IVPB SCH (08:15)
[2021-03-23] MEDS ORDERED: Magnesium 2 GM/50 ML 2 GM in Premix Bag 1 BAG IVPB SCH (08:30)
[2021-03-24] MEDS: Carvedilol 3.125 MG TAB PO SCH ×2 (09:06→09:12)
[2021-03-24] MEDS: Multivit, Therapeutic 1 TAB PO SCH (09:06)
[2021-03-24] MEDS: Folic Acid 1 MG TAB PO SCH (09:06)
[2021-03-24] MEDS: Famotidine 20 MG TAB PO SCH ×2 (09:06→20:46)
[2021-03-24] MEDS: Cyanocobalamin (Vitamin B-12) 1,000 MCG TAB PO SCH (09:06)
[2021-03-24] MEDS: Thiamine 100 MG TAB PO SCH (09:06)
[2021-03-24] MEDS: Aspirin 81 mg Enteric Coated Tablet PO SCH (09:06)
[2021-03-24] MEDS: Enoxaparin Sodium 30 MG/0.3 ML SYRINGE SC SCH (09:06)
[2021-03-24] MEDS: Losartan 25 MG TAB PO SCH (09:12)
[2021-03-24] MEDS: Sodium Chloride 0.9% 1,000 ML IV SCH (14:30)
[2021-03-25] MEDS: Sodium Chloride 0.9% 1,000 ML IV SCH (05:59)
[2021-03-25] MEDS: Multivit, Therapeutic 1 TAB PO SCH (08:10)
[2021-03-25] MEDS: Folic Acid 1 MG TAB PO SCH (08:10)
[2021-03-25] MEDS: Aspirin 81 mg Enteric Coated Tablet PO SCH (08:10)
[2021-03-25] MEDS: Famotidine 20 MG TAB PO SCH ×2 (08:10→21:27)
[2021-03-25] MEDS: Thiamine 100 MG TAB PO SCH (08:10)
[2021-03-25] MEDS: Cyanocobalamin (Vitamin B-12) 1,000 MCG TAB PO SCH (08:10)
[2021-03-25] MEDS: Losartan 25 MG TAB PO SCH (08:11)
[2021-03-25] MEDS: Enoxaparin Sodium 30 MG/0.3 ML SYRINGE SC SCH (08:11)
[2021-03-25 08:57] LABS: Anion Gap 12 mmol/L (10-20); BUN (Urea Nitrogen) 10 mg/dL (8.4-25.7); Calc. Creatinine Clearance 35 mL/min (70-130); Calcium 9.8 mg/dL (7.8-10.44); Carbon Dioxide 21 mmol/L (23-31); Chloride 96 mmol/L (98-107); Glucose 96 mg/dL (80-115); Magnesium 1.5 mg/dL (1.6-2.6); Potassium 4.1 mmol/L (3.5-5.1); Sodium 125 mmol/L (136-145)
[2021-03-25] MEDS ORDERED: Sodium Chloride 1 GM TAB PO SCH ×2 (13:30→21:00)
[2021-03-25] MEDS ORDERED: Magnesium 2 GM/50 ML 2 GM in Premix Bag 1 BAG IVPB SCH (14:00)
[2021-03-26 04:44] LABS: Anion Gap 12 mmol/L (10-20); BUN (Urea Nitrogen) 12 mg/dL (8.4-25.7); Calc. Creatinine Clearance 33 mL/min (70-130); Calcium 9.3 mg/dL (7.8-10.44); Carbon Dioxide 21 mmol/L (23-31); Chloride 96 mmol/L (98-107); Glucose 97 mg/dL (80-115); Magnesium 1.8 mg/dL (1.6-2.6); Potassium 4.4 mmol/L (3.5-5.1); Sodium 125 mmol/L (136-145)
[2021-03-26] MEDS: Enoxaparin Sodium 30 MG/0.3 ML SYRINGE SC SCH (08:36)
[2021-03-26] MEDS: Famotidine 20 MG TAB PO SCH ×2 (08:36→21:27)
[2021-03-26] MEDS: Aspirin 81 mg Enteric Coated Tablet PO SCH (08:36)
[2021-03-26] MEDS: Thiamine 100 MG TAB PO SCH (08:36)
[2021-03-26] MEDS: Cyanocobalamin (Vitamin B-12) 1,000 MCG TAB PO SCH (08:36)
[2021-03-26] MEDS: Losartan 25 MG TAB PO SCH (08:37)
[2021-03-26] MEDS: Multivit, Therapeutic 1 TAB PO SCH (08:37)
[2021-03-26] MEDS: Sodium Chloride 1 GM TAB PO SCH ×2 (08:37→21:27)
[2021-03-26] MEDS: Folic Acid 1 MG TAB PO SCH (08:37)
[2021-03-26 10:41] LABS: Free T4 (Free Thyroxine) 1.15 ng/dL (0.70-1.48)
[2021-03-26] MEDS ORDERED: Lorazepam 2 MG/ML VIAL SLOW IVP PRN (13:03)
[2021-03-26] MEDS ORDERED: Lorazepam 2 MG/ML VIAL ONE (13:06)
[2021-03-26] MEDS ORDERED: Lorazepam 2 MG/ML VIAL SLOW IVP SCH (13:15)
[2021-03-26 18:28] LABS: Creatinine, Urine 41.93 mg/dL (63-166)
[2021-03-27 05:08] LABS: Anion Gap 16 mmol/L (10-20); BUN (Urea Nitrogen) 11 mg/dL (8.4-25.7); Calc. Creatinine Clearance 33 mL/min (70-130); Carbon Dioxide 19 mmol/L (23-31); Chloride 97 mmol/L (98-107); Glucose 91 mg/dL (80-115); Potassium 4.6 mmol/L (3.5-5.1); Sodium 127 mmol/L (136-145)
[2021-03-27 06:14] VITALS: BMI 19.2
[2021-03-27] MEDS: Losartan 25 MG TAB PO SCH (09:19)
[2021-03-27] MEDS: Sodium Chloride 1 GM TAB PO SCH ×2 (09:19→20:05)
[2021-03-27] MEDS: Folic Acid 1 MG TAB PO SCH (09:20)
[2021-03-27] MEDS: Thiamine 100 MG TAB PO SCH (09:20)
[2021-03-27] MEDS: Enoxaparin Sodium 30 MG/0.3 ML SYRINGE SC SCH (09:20)
[2021-03-27] MEDS: Multivit, Therapeutic 1 TAB PO SCH (09:20)
[2021-03-27] MEDS: Famotidine 20 MG TAB PO SCH ×2 (09:20→20:03)
[2021-03-27] MEDS: Aspirin 81 mg Enteric Coated Tablet PO SCH (09:20)
[2021-03-27] MEDS: Cyanocobalamin (Vitamin B-12) 1,000 MCG TAB PO SCH (09:20)
[2021-03-28] MEDS: Acetaminophen 325 MG TAB PO PRN (06:43)
[2021-03-28] MEDS ORDERED: Enoxaparin Sodium 30 MG/0.3 ML SYRINGE ONE (07:42)
[2021-03-28] MEDS: Thiamine 100 MG TAB PO SCH (08:17)
[2021-03-28] MEDS: Sodium Chloride 1 GM TAB PO SCH ×2 (08:17→20:29)
[2021-03-28] MEDS: Enoxaparin Sodium 30 MG/0.3 ML SYRINGE SC SCH (08:17)
[2021-03-28] MEDS: Aspirin 81 mg Enteric Coated Tablet PO SCH (08:18)
[2021-03-28] MEDS: Famotidine 20 MG TAB PO SCH ×2 (08:18→20:28)
[2021-03-28] MEDS: Multivit, Therapeutic 1 TAB PO SCH (08:18)
[2021-03-28] MEDS: Cyanocobalamin (Vitamin B-12) 1,000 MCG TAB PO SCH (08:18)
[2021-03-28] MEDS: Folic Acid 1 MG TAB PO SCH (08:18)
[2021-03-28 08:24] LABS: Hemoglobin 9.2 g/dL (13.5-17.5); MDiff Complete? YES; Mean Corpuscular HGB CONC 34.3 g/dL (32.0-36.0); Mean Corpuscular Hemoglobin 30.9 pg (27.0-33.0); Mean Corpuscular Volume 89.9 fl (81.2-95.1); Mean Platelet Volume 9.1 fl (7.4-10.4); Platelet Count 379 10x3/uL (150-450); RBC Distribution Width 13.6 % (11.5-14.5); Red Blood Cell (RBC) Count 2.98 10x6/uL (4.32-5.72); White Blood Cell (WBC) Count 5.1 10x3/uL (3.5-10.5)
[2021-03-28 08:35] LABS: Anion Gap 15 mmol/L (10-20); BUN (Urea Nitrogen) 13 mg/dL (8.4-25.7); Calc. Creatinine Clearance 97 mL/min (70-130); Calcium 9.6 mg/dL (7.8-10.44); Carbon Dioxide 21 mmol/L (23-31); Chloride 96 mmol/L (98-107); Glucose 98 mg/dL (80-115); Magnesium 1.6 mg/dL (1.6-2.6); Potassium 4.5 mmol/L (3.5-5.1); Sodium 127 mmol/L (136-145)
[2021-03-28 08:36] LABS: Phosphorus 4.3 mg/dL (2.3-4.7)
[2021-03-28 08:58] LABS: Eosinophils 7 % (0-10); Lymphocytes 31 % (21-51); Monocytes 12 % (0-10); Neutrophil 49 % (42-75)
[2021-03-28 08:59] LABS: Platelet Morphology Comment Appears Adequate
[2021-03-28 09:00] LABS: RBC Morphology Normal
[2021-03-28 17:37] LABS: SARS-CoV-2 PCR by NAA Not Detected (NotDetected)
[2021-03-29] MEDS: Folic Acid 1 MG TAB PO SCH (08:51)
[2021-03-29] MEDS: Famotidine 20 MG TAB PO SCH ×2 (08:51→20:13)
[2021-03-29] MEDS: Sodium Chloride 1 GM TAB PO SCH ×2 (08:51→20:15)
[2021-03-29] MEDS: Multivit, Therapeutic 1 TAB PO SCH (08:51)
[2021-03-29] MEDS: Enoxaparin Sodium 40 MG/0.4 ML SYRINGE SC SCH (08:51)
[2021-03-29] MEDS: Aspirin 81 mg Enteric Coated Tablet PO SCH (08:51)
[2021-03-29] MEDS: Cyanocobalamin (Vitamin B-12) 1,000 MCG TAB PO SCH (08:51)
[2021-03-29] MEDS: Thiamine 100 MG TAB PO SCH (08:51)
[2021-03-29] MEDS: Magnesium Oxide 400 MG TAB PO SCH (20:14)
[2021-03-30 04:51] LABS: Anion Gap 13 mmol/L (10-20); BUN (Urea Nitrogen) 13 mg/dL (8.4-25.7); Calc. Creatinine Clearance 97 mL/min (70-130); Calcium 9.6 mg/dL (7.8-10.44); Carbon Dioxide 22 mmol/L (23-31); Chloride 100 mmol/L (98-107); Glucose 100 mg/dL (80-115); Magnesium 1.6 mg/dL (1.6-2.6); Potassium 4.3 mmol/L (3.5-5.1); Sodium 131 mmol/L (136-145)
[2021-03-30 06:43] LABS: Hemoglobin 8.7 g/dL (13.5-17.5); Mean Corpuscular HGB CONC 33.7 g/dL (32.0-36.0); Mean Corpuscular Hemoglobin 31.2 pg (27.0-33.0); Mean Corpuscular Volume 92.5 fl (81.2-95.1); Mean Platelet Volume 9.2 fl (7.4-10.4); Platelet Count 389 10x3/uL (150-450); RBC Distribution Width 13.7 % (11.5-14.5); Red Blood Cell (RBC) Count 2.79 10x6/uL (4.32-5.72); White Blood Cell (WBC) Count 5.9 10x3/uL (3.5-10.5)
[2021-03-30 07:05] LABS: MDiff Complete? YES
[2021-03-30 07:12] LABS: Eosinophils 14 % (0-10); Lymphocytes 25 % (21-51); Monocytes 20 % (0-10); Neutrophil 39 % (42-75)
[2021-03-30] MEDS: Sodium Chloride 1 GM TAB PO SCH ×2 (08:36→22:12)
[2021-03-30] MEDS: Aspirin 81 mg Enteric Coated Tablet PO SCH (08:36)
[2021-03-30] MEDS: Thiamine 100 MG TAB PO SCH (08:36)
[2021-03-30] MEDS: Cyanocobalamin (Vitamin B-12) 1,000 MCG TAB PO SCH (08:36)
[2021-03-30] MEDS: Multivit, Therapeutic 1 TAB PO SCH (08:36)
[2021-03-30] MEDS: Folic Acid 1 MG TAB PO SCH (08:36)
[2021-03-30] MEDS: Famotidine 20 MG TAB PO SCH ×2 (08:36→22:12)
[2021-03-30] MEDS: Enoxaparin Sodium 40 MG/0.4 ML SYRINGE SC SCH (08:36)
[2021-03-30] MEDS: Magnesium Oxide 400 MG TAB PO SCH ×2 (08:36→22:12)
[2021-03-30] MEDS ORDERED: Magnesium Sulfate 4 GM in Sodium Chloride 0.9% 250 ML 250 ML IVPB SCH (09:15)
[2021-03-30] MEDS ORDERED: Magnesium 2 GM/50 ML 2 GM in Premix Bag 1 BAG IVPB SCH (09:30)
[2021-03-31 04:59] LABS: Anion Gap 14 mmol/L (10-20); BUN (Urea Nitrogen) 17 mg/dL (8.4-25.7); Calc. Creatinine Clearance 90 mL/min (70-130); Calcium 9.6 mg/dL (7.8-10.44); Carbon Dioxide 22 mmol/L (23-31); Chloride 101 mmol/L (98-107); Glucose 96 mg/dL (80-115); Magnesium 1.5 mg/dL (1.6-2.6); Potassium 4.2 mmol/L (3.5-5.1); Sodium 133 mmol/L (136-145)
[2021-03-31] MEDS: Multivit, Therapeutic 1 TAB PO SCH (09:12)
[2021-03-31] MEDS: Thiamine 100 MG TAB PO SCH (09:12)
[2021-03-31] MEDS: Aspirin 81 mg Enteric Coated Tablet PO SCH (09:12)
[2021-03-31] MEDS: Cyanocobalamin (Vitamin B-12) 1,000 MCG TAB PO SCH (09:12)
[2021-03-31] MEDS: Magnesium Oxide 400 MG TAB PO SCH (09:12)
[2021-03-31] MEDS: Famotidine 20 MG TAB PO SCH (09:12)
[2021-03-31] MEDS: Folic Acid 1 MG TAB PO SCH (09:12)
[2021-03-31] MEDS: Enoxaparin Sodium 40 MG/0.4 ML SYRINGE SC SCH (09:12)
[2021-03-31] MEDS: Sodium Chloride 1 GM TAB PO SCH (09:50)
[2021-03-31] MEDS: SODIUM CHLORIDE 0.9% IVPB SCH ×2 (09:50→10:37)
[2021-03-31] MEDS: MAGNESIUM IVPB SCH ×2 (09:50→10:37)
[2021-03-31 11:29] VITALS: TEMP 98
[2021-03-31 12:47] VITALS: BP 129/78
== END 2021-03-31 16:30 | disposition home or self-care (01) | DRG 896 ==
LOC: CSHERS 05:05 → CSHTELE 11:56 → INTOOBSV 11:56 → OBSVTOIN 03-21 11:11
PROVIDERS: ADMIT Emergency Medicine; ATTEND Internal Medicine
PROC: HZ2ZZZZ Detoxification Services for Substance Abuse Treatment (ICD-10-PCS; principal; 2021-03-21)
DX: F10.20 Alcohol dependence, uncomplicated (principal); G93.41 Metabolic encephalopathy; I50.22 Chronic systolic (congestive) heart failure; E87.1 Hypo-osmolality and hyponatremia; Z20.822 Contact with and (suspected) exposure to COVID-19; I11.0 Hypertensive heart disease with heart failure; T87.89 Other complications of amputation stump; F14.10 Cocaine abuse, uncomplicated; F12.10 Cannabis abuse, uncomplicated; R29.6 Repeated falls; L97.509 Non-pressure chronic ulcer of other part of unspecified foot with unspecified severity; I73.9 Peripheral vascular disease, unspecified; D53.9 Nutritional anemia, unspecified; R77.8 Other specified abnormalities of plasma proteins; R53.81 Other malaise; E53.8 Deficiency of other specified B group vitamins; Y83.5 Amputation of limb(s) as the cause of abnormal reaction of the patient, or of later complication, without mention of misadventure at the time of the procedure; E87.6 Hypokalemia; E83.42 Hypomagnesemia; I95.9 Hypotension, unspecified; Z98.890 Other specified postprocedural states; Z91.19 Patient's noncompliance with other medical treatment and regimen; Z89.432 Acquired absence of left foot; Z89.431 Acquired absence of right foot
CPT/HCPCS: 36415; 70450; 71045; 72125; 80048; 80053; 80306; 80307; 81001; 82140; 82533; 82550; 82570; 82607; 82746; 83735; 83930; 83935; 84100; 84300; 84439; 84443; 84481; 84484; 85025; 93005; 93010; 96365; 96367; 96372; 96375; G0378; J0692; J1650; J2060; J3370; J3475; J7050; U0002; U0003; U0005

== ENCOUNTER 2021-06-29 05:36 | Emergency (ER) | payer BC, SELFPAY | END 2021-06-29 06:40 | disposition home or self-care (01) | LOC: CSHERS 05:36 | DX: G62.9 Polyneuropathy, unspecified (principal); F17.210 Nicotine dependence, cigarettes, uncomplicated; I10 Essential (primary) hypertension; G89.29 Other chronic pain; M79.672 Pain in left foot; M79.671 Pain in right foot | CPT/HCPCS: 93970 ==

== ENCOUNTER 2022-01-11 10:28 | Inpatient (IN) | payer BC, OTHER, SELFPAY ==
[2022-01-11] MEDS ORDERED: Midazolam HCl 2 mg/2 ml Vial ONE (10:40)
[2022-01-11 11:16] LABS: Hemoglobin 9.9 g/dL (13.5-17.5); Mean Corpuscular HGB CONC 34.4 g/dL (32.0-36.0); Mean Corpuscular Hemoglobin 35.5 pg (27.0-33.0); Mean Corpuscular Volume 103.2 fl (81.2-95.1); Mean Platelet Volume 10.3 fl (7.4-10.4); Platelet Count 174 10x3/uL (150-450); RBC Distribution Width 14.1 % (11.5-14.5); Red Blood Cell (RBC) Count 2.79 10x6/uL (4.32-5.72); White Blood Cell (WBC) Count 5.2 10x3/uL (3.5-10.5)
[2022-01-11 11:19] LABS: Bilirubin 1+ (Negative); Blood, Urine 25 (Negative); Clarity Clear (Clear); Glucose, Urine (Dipstick) Normal (Negative); Ketone, Urine 50 mg/dL (Negative); Leukocyte 25 (Negative); Nitrite Negative (Negative); Protein, Urine (Dipstick) 100 mg/dl (Neg-Trace); Specific Gravity, Urine 1.015 (1.002-1.036)
[2022-01-11 11:26] LABS: Amphetamine Not Detected (NotDetected); Barbiturates Screen Not Detected (NotDetected); Benzodiazepine Screen Detected (NotDetected); Cocaine Metabolite Screen Not Detected (NotDetected); Methadone Not Detected (NotDetected); Methamphetamine Not Detected (NotDetected); Opiate Screen Not Detected (NotDetected); Oxycodone Screen Not Detected (NotDetected); Phencyclidine (PCP) Not Detected (NotDetected); THC/Cannabinoid Screen Not Detected (NotDetected); Tricyclic Screen Not Detected (NotDetected)
[2022-01-11 11:30] LABS: ALT (SGPT) 14 U/L (8-55); AST (SGOT) 18 U/L (5-34); Acetaminophen Less than 10.0 mcg/mL (10.0-30.0); Albumin 3.2 g/dL (3.4-4.8); Alcohol Less than 10 mg/dL (Less than 10); Alkaline Phosphatase 55 U/L (40-110); Anion Gap 14 mmol/L (10-20); BUN (Urea Nitrogen) 11 mg/dL (8.4-25.7); Bilirubin, Total 0.8 mg/dL (0.2-1.2); Calc. Creatinine Clearance 0 mL/min (70-130); Calcium 8.8 mg/dL (7.8-10.44); Carbon Dioxide 21 mmol/L (23-31); Chloride 103 mmol/L (98-107); Estimated GFR 113; Globulin 3.4 g/dL (2.4-3.5); Glucose 78 mg/dL (80-115); Protein, Total 6.6 g/dL (5.8-8.1); Salicylate Less than 8.0 mg/dL (15.0-30.0); Sodium 135 mmol/L (136-145)
[2022-01-11 11:36] LABS: Bacteria/HPF 1+ HPF (None Seen); Mucous/LPF 1+ LPF (<2+); Squamous Epithelial 0-3 HPF (0-3); WBC/HPF 0-3 HPF (0-3)
[2022-01-11 11:51] LABS: MDiff Complete? YES; Manual Diff?? YES
[2022-01-11 11:58] LABS: Eosinophils 2 % (0-10); Lymphocytes 11 % (21-51); Monocytes 13 % (0-10); Neutrophil 72 % (42-75); Reactive Lymphocytes 2 % (0-10)
[2022-01-11 11:59] LABS: Platelet Morphology Comment Appears Adequate
[2022-01-11] MEDS ORDERED: cefTRIAXone\\ROCEPHIN 2 GM VIAL ONE (11:59)
[2022-01-11] MEDS ORDERED: predniSONE 20 MG TAB ONE ×2 (11:59→12:04)
[2022-01-11] MEDS ORDERED: Diazepam 10 MG/2 ML SYRINGE ONE (11:59)
[2022-01-11 12:00] LABS: Anisocytosis SLIGHT = 6-15 cells (100X) (0-5/hpf); Hypochromia SLIGHT = 6-15 cells (100X) (0-5/hpf); Macrocytosis SLIGHT = 6-15 cells (100X) (0-5/hpf); Microcytosis SLIGHT = 6-15 cells (100X) (0-5/hpf)
[2022-01-11] MEDS ORDERED: chlordiazePOXIDE HCl 25 MG CAP ONE (12:04)
[2022-01-11 12:28] LABS: SARS-CoV-2 NAA Rapid Test Not Detected (NotDetected)
[2022-01-11] MEDS ORDERED: NS 0.9% w/ 20 MEQ KCL 1,000 ML ONE ×2 (13:22)
[2022-01-11 14:20] VITALS: BMI 21.4
[2022-01-11] MEDS ORDERED: Ondansetron ODT 4 MG TAB PO PRN ×2 (14:43→14:47)
[2022-01-11] MEDS ORDERED: Ondansetron PF 4 MG/2 ML Vial IVP PRN (14:43)
[2022-01-11] MEDS ORDERED: Lorazepam 2 MG/ML VIAL IM PRN (14:47)
[2022-01-11] MEDS ORDERED: Lorazepam 1 MG TAB PO PRN (14:47)
[2022-01-11] MEDS ORDERED: Electrolyte Replacement Protocol 1 EACH FS SCH (15:00)
[2022-01-11] MEDS: Thiamine HCl 200 MG/2 ML VIAL SLOW IVP SCH (15:13)
[2022-01-11] MEDS: D5 1/2 NS w/20 mEq KCL 1,000 ML IV SCH (15:14)
[2022-01-11] MEDS: Lorazepam 1 MG TAB PO SCH ×2 (15:14→20:27)
[2022-01-11 15:26] LABS: Hemoglobin 9.5 g/dL (13.5-17.5); Mean Corpuscular HGB CONC 33.9 g/dL (32.0-36.0); Mean Corpuscular Hemoglobin 35.2 pg (27.0-33.0); Mean Corpuscular Volume 103.7 fl (81.2-95.1); Mean Platelet Volume 10.7 fl (7.4-10.4); Platelet Count 176 10x3/uL (150-450); RBC Distribution Width 14.2 % (11.5-14.5); White Blood Cell (WBC) Count 3.9 10x3/uL (3.5-10.5)
[2022-01-11 15:27] LABS: MDiff Complete? YES
[2022-01-11 15:46] LABS: ALT (SGPT) 12 U/L (8-55); AST (SGOT) 17 U/L (5-34); Alkaline Phosphatase 55 U/L (40-110); Anion Gap 16 mmol/L (10-20); BUN (Urea Nitrogen) 9 mg/dL (8.4-25.7); Bilirubin, Direct 0.3 mg/dL (0.1-0.3); Bilirubin, Total 0.6 mg/dL (0.2-1.2); Calc. Creatinine Clearance 139 mL/min (70-130); Calcium 8.6 mg/dL (7.8-10.44); Carbon Dioxide 19 mmol/L (23-31); Chloride 106 mmol/L (98-107); Estimated GFR 112; Globulin 3.3 g/dL (2.4-3.5); Glucose 79 mg/dL (80-115); Magnesium 1.6 mg/dL (1.6-2.6); Phosphorus 3.7 mg/dL (2.3-4.7); Protein, Total 6.3 g/dL (5.8-8.1); Sodium 138 mmol/L (136-145)
[2022-01-11 16:02] LABS: Syphilis Antibody Nonreactive (Nonreactive); Syphilis Antibody Index 0.08 S/CO (<1.00 Non-Reactive)
[2022-01-11] MEDS: Potassium Chloride 20 MEQ in Premix Bag 1 BAG IVPB SCH ×2 (16:12→16:56)
[2022-01-11 16:25] LABS: Band 1 % (5-11); Lymphocytes 23 % (21-51); Monocytes 13 % (0-10); Neutrophil 61 % (42-75); Reactive Lymphocytes 2 % (0-10)
[2022-01-11 16:26] LABS: Platelet Morphology Comment Appears Adequate
[2022-01-11] MEDS ORDERED: Magnesium 2 GM/50 ML(in water) 2 GM in Premix Bag 1 BAG IVPB SCH (17:15)
[2022-01-12] MEDS: D5 1/2 NS w/20 mEq KCL 1,000 ML IV SCH ×3 (00:23→23:27)
[2022-01-12] MEDS: Lorazepam 1 MG TAB PO SCH ×4 (02:08→20:46)
[2022-01-12 04:48] LABS: ALT (SGPT) 9 U/L (8-55); AST (SGOT) 14 U/L (5-34); Albumin 2.9 g/dL (3.4-4.8); Alkaline Phosphatase 51 U/L (40-110); Anion Gap 13 mmol/L (10-20); BUN (Urea Nitrogen) 6 mg/dL (8.4-25.7); Bilirubin, Total 0.6 mg/dL (0.2-1.2); Calc. Creatinine Clearance 125 mL/min (70-130); Calcium 8.6 mg/dL (7.8-10.44); Carbon Dioxide 22 mmol/L (23-31); Chloride 105 mmol/L (98-107); Estimated GFR 108; Globulin 3.2 g/dL (2.4-3.5); Glucose 124 mg/dL (80-115); Magnesium 1.8 mg/dL (1.6-2.6); Potassium 3.6 mmol/L (3.5-5.1); Protein, Total 6.1 g/dL (5.8-8.1); Sodium 136 mmol/L (136-145)
[2022-01-12 04:59] LABS: Mean Corpuscular HGB CONC 34.8 g/dL (32.0-36.0); Mean Corpuscular Hemoglobin 34.8 pg (27.0-33.0); Mean Platelet Volume 10.4 fl (7.4-10.4); Platelet Count 194 10x3/uL (150-450); RBC Distribution Width 13.9 % (11.5-14.5); Red Blood Cell (RBC) Count 2.87 10x6/uL (4.32-5.72); White Blood Cell (WBC) Count 4.3 10x3/uL (3.5-10.5)
[2022-01-12 05:07] LABS: MDiff Complete? YES
[2022-01-12 06:40] LABS: Eosinophils 1 % (0-10); Lymphocytes 15 % (21-51); Monocytes 20 % (0-10); Neutrophil 64 % (42-75)
[2022-01-12 06:41] LABS: Hypochromia SLIGHT = 6-15 cells (100X) (0-5/hpf); Microcytosis SLIGHT = 6-15 cells (100X) (0-5/hpf); Platelet Morphology Comment Appears Adequate
[2022-01-12] MEDS: Enoxaparin Sodium 40 MG/0.4 ML SYRINGE SC SCH (08:59)
[2022-01-12] MEDS: Folic Acid 1 MG TAB PO SCH (08:59)
[2022-01-12] MEDS: Multivit, Therapeutic 1 TAB PO SCH (08:59)
[2022-01-12] MEDS ORDERED: Magnesium 2 GM/50 ML(in water) 2 GM in Premix Bag 1 BAG IVPB SCH (09:00)
[2022-01-12] MEDS ORDERED: Lorazepam 1 MG TAB PO PRN (14:47)
[2022-01-12] MEDS: Thiamine HCl 200 MG/2 ML VIAL SLOW IVP SCH (15:09)
[2022-01-12] MEDS: Acetaminophen 325 MG TAB PO PRN (19:45)
[2022-01-13] MEDS: Lorazepam 1 MG TAB PO SCH ×2 (02:52→08:33)
[2022-01-13 04:39] LABS: #Eosinphils 0.1 10x3/uL (0.0-0.5); #Neutrophils 1.8 10x3/uL (1.5-8.4); %Basophils 0.7 % (0.0-2.0); %Eosinophils 1.1 % (0.0-6.0); %Lymphocytes 34.1 % (18.0-47.0); %Monocytes 22.7 % (0.0-10.0); %Neutrophils 41.2 % (40.0-75.0); Hemoglobin 9.8 g/dL (13.5-17.5); Mean Corpuscular HGB CONC 33.7 g/dL (32.0-36.0); Mean Corpuscular Hemoglobin 33.9 pg (27.0-33.0); Mean Corpuscular Volume 100.7 fl (81.2-95.1); Mean Platelet Volume 10.1 fl (7.4-10.4); Platelet Count 230 10x3/uL (150-450); RBC Distribution Width 13.8 % (11.5-14.5); Red Blood Cell (RBC) Count 2.89 10x6/uL (4.32-5.72); White Blood Cell (WBC) Count 4.4 10x3/uL (3.5-10.5)
[2022-01-13 04:51] LABS: Anion Gap 11 mmol/L (10-20); BUN (Urea Nitrogen) 6 mg/dL (8.4-25.7); Calc. Creatinine Clearance 117 mL/min (70-130); Calcium 8.6 mg/dL (7.8-10.44); Carbon Dioxide 23 mmol/L (23-31); Chloride 104 mmol/L (98-107); Estimated GFR 106; Glucose 109 mg/dL (80-115); Magnesium 1.7 mg/dL (1.6-2.6); Potassium 3.9 mmol/L (3.5-5.1); Sodium 134 mmol/L (136-145)
[2022-01-13] MEDS: Enoxaparin Sodium 40 MG/0.4 ML SYRINGE SC SCH (08:33)
[2022-01-13] MEDS: Folic Acid 1 MG TAB PO SCH (08:33)
[2022-01-13] MEDS: Multivit, Therapeutic 1 TAB PO SCH (08:34)
[2022-01-13] MEDS: Acetaminophen 325 MG TAB PO PRN ×2 (08:48→23:20)
[2022-01-13] MEDS ORDERED: Magnesium 2 GM/50 ML(in water) 2 GM in Premix Bag 1 BAG IVPB SCH (09:00)
[2022-01-13] MEDS: D5 1/2 NS w/20 mEq KCL 1,000 ML IV SCH ×2 (10:14→20:32)
[2022-01-13] MEDS ORDERED: Lorazepam 1 MG TAB PO PRN (14:47)
[2022-01-13] MEDS: Thiamine HCl 200 MG/2 ML VIAL SLOW IVP SCH (15:39)
[2022-01-13] MEDS: Lorazepam 0.5 MG TAB PO SCH ×2 (15:44→20:34)
[2022-01-14] MEDS: Lorazepam 0.5 MG TAB PO SCH (02:45)
[2022-01-14 04:17] LABS: Magnesium 1.5 mg/dL (1.6-2.6)
[2022-01-14 04:18] VITALS: TEMP 98.5
[2022-01-14] MEDS: Magnesium 2 GM/50 ML(in water) 2 GM in Premix Bag 1 BAG IVPB SCH ×2 (07:02→09:37)
[2022-01-14] MEDS ORDERED: Magnesium 2 GM/50 ML BAG (IN WATER) ONE (07:05)
[2022-01-14] MEDS: Acetaminophen 325 MG TAB PO PRN (07:07)
[2022-01-14] MEDS: Enoxaparin Sodium 40 MG/0.4 ML SYRINGE SC SCH (09:36)
[2022-01-14] MEDS: Multivit, Therapeutic 1 TAB PO SCH (09:38)
[2022-01-14] MEDS: Folic Acid 1 MG TAB PO SCH (09:38)
[2022-01-14] MEDS: D5 1/2 NS w/20 mEq KCL 1,000 ML IV SCH ×2 (11:23→13:24)
[2022-01-14] MEDS ORDERED: Lorazepam 0.5 MG TAB PO PRN (14:47)
[2022-01-14] MEDS ORDERED: Thiamine 100 MG TAB PO SCH (15:00)
[2022-01-15] MEDS: D5 1/2 NS w/20 mEq KCL 1,000 ML IV SCH (02:24)
[2022-01-15 04:23] LABS: Magnesium 1.6 mg/dL (1.6-2.6)
[2022-01-15] MEDS: Folic Acid 1 MG TAB PO SCH (08:21)
[2022-01-15] MEDS: Magnesium 2 GM/50 ML(in water) 2 GM in Premix Bag 1 BAG IVPB SCH ×2 (08:21→12:07)
[2022-01-15] MEDS: Enoxaparin Sodium 40 MG/0.4 ML SYRINGE SC SCH (08:21)
[2022-01-15] MEDS: Multivit, Therapeutic 1 TAB PO SCH (08:21)
[2022-01-15 11:24] VITALS: BP 136/88
== END 2022-01-15 18:15 | disposition home or self-care (01) | DRG 897 ==
LOC: CSHERS 10:28 → CSHIMCU 13:39
PROVIDERS: ADMIT Internal Medicine; ATTEND Internal Medicine
PROC: HZ2ZZZZ Detoxification Services for Substance Abuse Treatment (ICD-10-PCS; principal; 2022-01-11)
DX: F10.239 Alcohol dependence with withdrawal, unspecified (principal); I10 Essential (primary) hypertension; F17.210 Nicotine dependence, cigarettes, uncomplicated; E87.6 Hypokalemia; R82.71 Bacteriuria; D53.9 Nutritional anemia, unspecified; Z20.822 Contact with and (suspected) exposure to COVID-19; Z79.899 Other long term (current) drug therapy; Z79.82 Long term (current) use of aspirin; Z89.412 Acquired absence of left great toe; Z89.411 Acquired absence of right great toe; Z59.01 Sheltered homelessness
CPT/HCPCS: 36415; 36416; 70450; 71045; 80048; 80053; 80306; 80307; 81003; 81015; 82248; 83735; 84100; 85025; 86140; 86780; 87040; 87077; 87086; 87186; 93005; 94760; 96374; 96375; J0696; J1650; J2250; J3360; J3411; J3475; J3480; J7512; Q0162; U0002

== ENCOUNTER 2022-02-09 01:10 | Emergency (ER) | payer BC ==
[2022-02-09] MEDS ORDERED: Gabapentin 100 MG CAP PO SCH (03:00)
== END 2022-02-09 22:30 | disposition home or self-care (01) ==
LOC: CSHERS 01:10
DX: M79.2 Neuralgia and neuritis, unspecified (principal); I10 Essential (primary) hypertension; F17.210 Nicotine dependence, cigarettes, uncomplicated
CPT/HCPCS: 99283